=== PATIENT | female | born 1970 | race Caucasian/White ===

== ENCOUNTER 2017-11-15 10:58 | Inpatient (IN) | payer BC ==
[~2017-11-15] VITALS: Ht 167.6 cm; Wt 98.0 kg
[2017-11-15 13:25] LABS: BASOPHILS # (AUTO) 0.17 x10^3/uL (0-0.1); BASOPHILS % (AUTO) 1 % (0-1); EOSINOPHILS # (AUTO) 0.17 x10^3/uL (0-0.4); EOSINOPHILS % (AUTO) 1 % (1-7); LYMPHOCYTES # (AUTO) 3.14 x10^3/uL (1-3.4); LYMPHOCYTES % (AUTO) 18 % (22-44); MD NO; MEAN CORPUSCULAR HEMOGLOBIN 30.9 pg (27.0-34.8); MEAN CORPUSCULAR HGB CONC 33.2 g/dL (32.4-35.8); MEAN PLATELET VOLUME 7.7 fL (7.4-10.4); MONOCYTES # (AUTO) 1.16 x10^3/uL (0.2-0.8); MONOCYTES % (AUTO) 7 % (2-9); NEUTROPHILS # (AUTO) 13.31 x10^3/uL (1.8-6.8); NEUTROPHILS % (AUTO) 74 % (42-75); PLATELET COUNT 409 x10^3/uL (130-400); RED BLOOD COUNT 4.35 x10^6/uL (3.82-5.3); RED CELL DISTRIBUTION WIDTH 13.4 % (9.6-15.2)
[2017-11-15 13:26] LABS: MICROSCOPIC NOT IND
[2017-11-15 13:29] LABS: CULTURE INDICATED? NO
[2017-11-15 13:37] LABS: ALBUMIN 3.6 g/dL (3.4-5.0); ANION GAP 6 mmol/L (5-15); CALCIUM 8.4 mg/dL (8.5-10.1); CHLORIDE 104 mmol/L (98-107)
[2017-11-15 13:40] LABS: ALANINE AMINOTRANSFERASE 20 U/L (12-78); ALKALINE PHOSPHATASE 59 U/L (45-117); BILIRUBIN,TOTAL 0.5 mg/dL (0.2-1.0)
[2017-11-15] MEDS ORDERED: SODIUM CHLORIDE FLUSH 10ML SYR IVF ONE (14:00)
[2017-11-15] MEDS ORDERED: MORPHINE SULFATE 4 MG/ML, 1ML IVPush PRN ×3 (14:00→22:00)
[2017-11-15] MEDS ORDERED: HYDROcodone/APAP 5/325 TABLET PO ONE (14:00)
[2017-11-15] MEDS ORDERED: ONDANSETRON ODT 4 MG PO ONE (14:00)
[2017-11-15] MEDS ORDERED: ONDANSETRON ODT 4 MG ONE (14:34)
[2017-11-15] MEDS ORDERED: HYDROcodone/APAP 5/325 TABLET ONE (14:34)
[2017-11-15] MEDS ORDERED: OMNIPAQUE 350 MG/ML, 100ML BOTTLE ONE (16:17)
[2017-11-15] MEDS ORDERED: CEFOTETAN PMX 1GM/50ML 50 ML ONE (16:59)
[2017-11-15] MEDS ORDERED: METOCLOPRAMIDE 5 MG/ML, 2ML ONE (16:59)
[2017-11-15] MEDS ORDERED: MORPHINE SULFATE 4 MG/ML, 1ML ONE (16:59)
[2017-11-15] MEDS ORDERED: CEFOTETAN PMX 1GM/50ML 50 ML IV ONE (17:00)
[2017-11-15] MEDS ORDERED: METOCLOPRAMIDE 5 MG/ML, 2ML IVPush ONE (17:00)
[2017-11-15] MEDS ORDERED: SODIUM CHLORIDE 0.9% 1,000 ML IV ONE (18:00)
[2017-11-15] MEDS ORDERED: SODIUM CHLORIDE FLUSH 10ML SYR IVF PRN (19:00)
[2017-11-15] MEDS ORDERED: MIDAZOLAM 1 MG/ML, 2ML ONE (20:19)
[2017-11-15] MEDS ORDERED: BUPIVACAINE/PF 0.5% ONE (20:19)
[2017-11-15] MEDS ORDERED: FENTANYL PF 100 MCG/2ML ONE ×2 (20:19→21:33)
[2017-11-15] MEDS ORDERED: EPINEPHRINE 1 MG/ML, 1ML ONE (20:20)
[2017-11-15] MEDS ORDERED: SUCCINYLCHOLINE 20 MG/ML, 10ML ONE (20:21)
[2017-11-15] MEDS ORDERED: ONDANSETRON 2MG/ML, 2ML ONE (20:21)
[2017-11-15] MEDS ORDERED: DEXAMETHASONE 4 MG/ML, 1ML ONE (20:21)
[2017-11-15] MEDS ORDERED: PROPOFOL 10 MG/ML, 20ML ONE (20:21)
[2017-11-15] MEDS ORDERED: GLYCOPYRROLATE 0.2MG/1ML, 5ML ONE (20:21)
[2017-11-15] MEDS ORDERED: CEFAZOLIN 1,000 MG ONE (20:21)
[2017-11-15] MEDS ORDERED: LIDOCAINE GEL 2%, 5ML ONE (20:21)
[2017-11-15] MEDS ORDERED: NEOSTIGMINE 1 MG/ML, 10ML ONE (20:21)
[2017-11-15] MEDS ORDERED: ROCURONIUM 10 MG/ML,10ML ONE (20:27)
[2017-11-15] MEDS ORDERED: MIDAZOLAM 1 MG/ML, 2ML IV PRN (20:30)
[2017-11-15] MEDS ORDERED: hydrALAzine 20 MG/ML, 1ML IV PRN (20:30)
[2017-11-15] MEDS ORDERED: PROMETHAZINE 25 MG/ML, 1ML IV PRN (20:30)
[2017-11-15] MEDS ORDERED: ACETAMINOPHEN 325 MG TABLET PO PRN (20:30)
[2017-11-15] MEDS ORDERED: MEPERIDINE/PF 25MG/0.5ML IVPush PRN (20:30)
[2017-11-15] MEDS ORDERED: LABETALOL 5MG/ML, 20ML IV PRN (20:30)
[2017-11-15] MEDS ORDERED: ALBUTEROL SULFATE 2.5 MG/3 ML NPPB PRN (20:30)
[2017-11-15] MEDS ORDERED: OXYcodone 5 MG/5 ML ORAL.SOL UDC PO PRN (20:30)
[2017-11-15] MEDS ORDERED: ONDANSETRON 2MG/ML, 2ML IVPush PRN ×2 (20:30→22:00)
[2017-11-15] MEDS ORDERED: ALBUTEROL/IPRATROPIUM 2.5MG/0.5MG, 3 ML NPPB PRN (20:30)
[2017-11-15] MEDS ORDERED: HYDROmorphone 1 MG/ML, 1ML IV PRN (20:30)
[2017-11-15] MEDS ORDERED: FENTANYL PF 100 MCG/2ML IV PRN (20:30)
[2017-11-15] MEDS ORDERED: DIAZEPAM 5 MG/ML, 2ML IVPush PRN (20:30)
[2017-11-15] MEDS ORDERED: BUPIVACAINE/PF 0.5% INFIL ONE (21:01)
[2017-11-15] MEDS ORDERED: EPINEPHRINE 1 MG/ML, 1ML INFIL ONE (21:01)
[2017-11-15] MEDS ORDERED: KETOROLAC 30 MG/1 ML ONE (21:11)
[2017-11-15] MEDS ORDERED: MEPERIDINE/PF 50 MG/ML ONE (21:33)
[2017-11-15] MEDS ORDERED: OXYcodone 5 MG/5 ML ORAL.SOL UDC ONE (21:33)
[2017-11-15] MEDS ORDERED: ACETAMINOPHEN 650 MG/20.3 ML UDC ONE (21:33)
[2017-11-15] MEDS ORDERED: ACETAMINOPHEN 650 MG/20.3 ML UDC PO PRN (22:00)
[2017-11-15] MEDS ORDERED: ENALAPRILAT 1.25 MG/ML, 2ML IV PRN (22:00)
[2017-11-15] MEDS ORDERED: DIPHENHYDRAMINE 50 MG/ML, 1ML IV PRN (22:00)
[2017-11-15] MEDS ORDERED: CEFOTETAN PMX 1GM/50ML 50 ML IVPB SCH (22:00)
[2017-11-16] VITALS: BP 108/48
[2017-11-16] MEDS: OXYcodone/APAP 5/325MG TABLET PO PRN ×3 (01:07→10:01)
[2017-11-16] MEDS: POTASSIUM CHLORIDE 20 MEQ in D5%-0.45% NACL 1,000 ML IV SCH ×2 (01:07→09:31)
[2017-11-16 04:55] VITALS: BP 96/62
[2017-11-16 05:19] LABS: ANION GAP 6 mmol/L (5-15); CALCIUM 7.5 mg/dL (8.5-10.1); CHLORIDE 105 mmol/L (98-107); CREATININE 0.99 mg/dL (0.55-1.02)
[2017-11-16 05:28] LABS: BASOPHILS # (AUTO) 0.01 x10^3/uL (0-0.1); BASOPHILS % (AUTO) 0 % (0-1); EOSINOPHILS % (AUTO) 0 % (1-7); LYMPHOCYTES # (AUTO) 0.95 x10^3/uL (1-3.4); LYMPHOCYTES % (AUTO) 6 % (22-44); MD NO; MEAN CORPUSCULAR HEMOGLOBIN 31.5 pg (27.0-34.8); MEAN CORPUSCULAR HGB CONC 33.4 g/dL (32.4-35.8); MEAN CORPUSCULAR VOLUME 94.4 fL (80-100); MEAN PLATELET VOLUME 8.4 fL (7.4-10.4); MONOCYTES # (AUTO) 0.16 x10^3/uL (0.2-0.8); MONOCYTES % (AUTO) 1 % (2-9); NEUTROPHILS # (AUTO) 15.03 x10^3/uL (1.8-6.8); NEUTROPHILS % (AUTO) 93 % (42-75); PLATELET COUNT 338 x10^3/uL (130-400); RED BLOOD COUNT 3.77 x10^6/uL (3.82-5.3); RED CELL DISTRIBUTION WIDTH 13.7 % (9.6-15.2)
[2017-11-16] MEDS ORDERED: ENOXAPARIN 40 MG/0.4 ML SQ SCH (07:30)
[2017-11-16] MEDS ORDERED: OXYC-302 PO (07:52)
[2017-11-16] MEDS ORDERED: LEVO125T PO (07:52)
[2017-11-16 08:00] VITALS: BP 109/70
== END 2017-11-16 11:20 | disposition home or self-care (01) | DRG 339 ==
LOC: ED 17:31 → EDIP 17:32 → ED 18:12 → 4NOR 22:20
PROVIDERS: ADMIT Emergency Medicine; ATTEND Emergency Medicine
PROC: 0DTJ4ZZ Resection of Appendix, Percutaneous Endoscopic Approach (ICD-10-PCS; principal; 2017-11-15 20:00)
DX: K35.3 Acute appendicitis with localized peritonitis (principal); R18.8 Other ascites; E89.0 Postprocedural hypothyroidism; K27.9 Peptic ulcer, site unspecified, unspecified as acute or chronic, without hemorrhage or perforation; K80.20 Calculus of gallbladder without cholecystitis without obstruction; G89.29 Other chronic pain; Z87.11 Personal history of peptic ulcer disease; Z90.710 Acquired absence of both cervix and uterus; Z90.89 Acquired absence of other organs
CPT/HCPCS: 36415; 74177; 76700; 80048; 80053; 81003; 82040; 83690; 85025; 88304; 96365; 96375; J0171; J0690; J1100; J1650; J1885; J2175; J2250; J2405; J2704; J2710; J3010; J3480; J3490; Q0162; Q9967; J0330; J2765; J7030; S0074

== ENCOUNTER 2018-03-08 01:30 | Emergency (ER) | payer BC ==
[~2018-03-08] VITALS: Ht 167.6 cm; Wt 90.0 kg
[~2018-03-08 01:30] MED LIST: LEVO125T PO; OXYC-302 PO
[2018-03-08] MEDS ORDERED: MAALOX/HYOSCYAMINE/LIDOCAINE 45 ML BTL ONE (01:57)
[2018-03-08] MEDS ORDERED: MAALOX/HYOSCYAMINE/LIDOCAINE 45 ML BTL PO ONE (02:00)
[2018-03-08 02:09] LABS: MICROSCOPIC NOT IND
[2018-03-08 02:14] LABS: CULTURE INDICATED? NO
[2018-03-08 02:46] LABS: BASOPHILS # (AUTO) 0.07 x10^3/uL (0-0.1); BASOPHILS % (AUTO) 1 % (0-1); EOSINOPHILS # (AUTO) 0.29 x10^3/uL (0-0.4); EOSINOPHILS % (AUTO) 2 % (1-7); LYMPHOCYTES # (AUTO) 4.57 x10^3/uL (1-3.4); LYMPHOCYTES % (AUTO) 38 % (22-44); MD NO; MEAN CORPUSCULAR HEMOGLOBIN 31.4 pg (27.0-34.8); MEAN CORPUSCULAR VOLUME 92.3 fL (80-100); MEAN PLATELET VOLUME 8.1 fL (7.4-10.4); MONOCYTES # (AUTO) 0.84 x10^3/uL (0.2-0.8); MONOCYTES % (AUTO) 7 % (2-9); NEUTROPHILS # (AUTO) 6.39 x10^3/uL (1.8-6.8); NEUTROPHILS % (AUTO) 53 % (42-75); PLATELET COUNT 457 x10^3/uL (130-400); RED BLOOD COUNT 4.26 x10^6/uL (3.82-5.3); RED CELL DISTRIBUTION WIDTH 13.1 % (9.6-15.2)
[2018-03-08 02:51] LABS: ALANINE AMINOTRANSFERASE 21 U/L (12-78); ALBUMIN 3.5 g/dL (3.4-5.0); ANION GAP 9 mmol/L (5-15); CALCIUM 8.6 mg/dL (8.5-10.1); CHLORIDE 107 mmol/L (98-107); CREATININE 0.92 mg/dL (0.55-1.02)
[2018-03-08 02:55] LABS: ALKALINE PHOSPHATASE 56 U/L (45-117); BILIRUBIN,TOTAL 0.3 mg/dL (0.2-1.0); TROPONIN I < 0.015 ng/mL (0.000-0.045)
[2018-03-08 03:06] VITALS: BP 114/69
[2018-03-08] MEDS ORDERED: HYDROmorphone 2 MG/ML, 1ML ONE (03:38)
[2018-03-08] MEDS ORDERED: HYDROmorphone 1 MG/ML, 1ML IM ONE (04:00)
== END 2018-03-08 03:45 | disposition home or self-care (01) ==
LOC: ED 03:27
DX: K80.20 Calculus of gallbladder without cholecystitis without obstruction (principal); E03.9 Hypothyroidism, unspecified; Z90.89 Acquired absence of other organs; Z90.710 Acquired absence of both cervix and uterus
CPT/HCPCS: 36415; 76700; 80053; 81003; 83690; 84484; 85025; 93005; 96372; 99285; J1170

== ENCOUNTER → 2018-08-26 | Outpatient (CLI) | payer BC | END | disposition home or self-care (01) | LOC: CFH 07:35 | PROVIDERS: ATTEND Nurse Practitioner Family | DX: R74.8 Abnormal levels of other serum enzymes (principal); R10.9 Unspecified abdominal pain | CPT/HCPCS: 76700 ==

== ENCOUNTER 2020-08-07 11:54 | Emergency (ER) | payer SELFPAY ==
[~2020-08-07] VITALS: Ht 167.6 cm; Wt 88.5 kg
[2020-08-07] MEDS ORDERED: LIDOCAINE-MPF 1%, 5ML ONE (12:24)
[2020-08-07] MEDS ORDERED: HYDROcodone/APAP 5/325 TABLET ONE ×2 (12:24→12:29)
[2020-08-07] MEDS ORDERED: DIPH,PERTUSS(ACELL),TET VAC/PF 0.5 ML IM-VACC ONE ×2 (12:25→12:30)
[2020-08-07] MEDS ORDERED: HYDROcodone/APAP 5/325 TABLET PO ONE (12:30)
[2020-08-07] MEDS ORDERED: LIDOCAINE-MPF 1%, 5ML INFIL ONE (12:30)
--- NOTE | 2020-08-07 13:09 | NUR ---
PT COMES IN C/O GLF. STATES SHE TRIPPED ON UNEVEN SIDEWALK ON WAY INTO WORK. PRESENTS WITH OPEN WOUND TO LEFT EYEBROW. STATES SHE HAS A ABDALLA, AND IS DIZZY. PROVIDER AT BEDSIDE. MONITORS CONNECTED. WARM BLANKETS PROVIDED.
--- NOTE | 2020-08-07 13:18 | NUR ---
PROVIDER BEDSIDE ADMIN. LIDOCAIN. WOUND IRRIGATION COMPLETE. PT STATES 5/10 ABDALLA FOLLOWING PAIN MEDICATION INTERVENTION. VSS. NAD. WILL CONTINUE TO MONITOR
[2020-08-07] MEDS ORDERED: NEOSPORIN OINT. PKT 1 PACKET ONE (13:42)
[2020-08-07 14:35] VITALS: BP 133/82
== END 2020-08-07 14:38 | disposition home or self-care (01) ==
LOC: ED 14:23
DX: S01.81XA Laceration without foreign body of other part of head, initial encounter (principal); S16.1XXA Strain of muscle, fascia and tendon at neck level, initial encounter; S29.012A Strain of muscle and tendon of back wall of thorax, initial encounter; E03.9 Hypothyroidism, unspecified; Z90.49 Acquired absence of other specified parts of digestive tract; W01.0XXA Fall on same level from slipping, tripping and stumbling without subsequent striking against object, initial encounter; Y93.89 Activity, other specified; Y92.410 Unspecified street and highway as the place of occurrence of the external cause; Y99.8 Other external cause status
CPT/HCPCS: 12013; 70450; 70486; 72072; 72125; 90471; 90715

== ENCOUNTER 2021-03-14 16:42 | Emergency (ER) | payer OTHER ==
[~2021-03-14] VITALS: Ht 167.6 cm; Wt 89.9 kg
[~2021-03-14 16:42] MED LIST changes: -OXYC-302 PO; +OXYC1TAB14 PO
--- NOTE | 2021-03-14 22:29 | NUR ---
regional liaison: Pt ambulatory to room from lobby at this time.
[2021-03-14] MEDS ORDERED: DEXAMETHASONE 4 MG TABLET ONE (22:49)
[2021-03-14] MEDS ORDERED: ALBUTEROL/IPRATROPIUM 2.5MG/0.5MG, 3 ML ONE (22:49)
[2021-03-14 22:59] VITALS: BP 149/80
[2021-03-14] MEDS ORDERED: ALBUTEROL/IPRATROPIUM 2.5MG/0.5MG, 3 ML NPPB ONE (23:00)
[2021-03-14] MEDS ORDERED: DEXAMETHASONE 4 MG TABLET PO ONE (23:00)
== END 2021-03-14 23:23 | disposition home or self-care (01) ==
LOC: ED 17:00
DX: J06.9 Acute upper respiratory infection, unspecified (principal); Z20.822 Contact with and (suspected) exposure to COVID-19; J02.8 Acute pharyngitis due to other specified organisms; B97.89 Other viral agents as the cause of diseases classified elsewhere; R94.31 Abnormal electrocardiogram [ECG] [EKG]; E03.9 Hypothyroidism, unspecified; Z90.49 Acquired absence of other specified parts of digestive tract; Z90.89 Acquired absence of other organs; Z90.710 Acquired absence of both cervix and uterus
CPT/HCPCS: 71046; 87081; 87147; 87880; 93005; 94640; 99285; U0003; U0005